=== PATIENT | female | born 1950 | race Caucasian/White ===

== ENCOUNTER → 2018-12-28 | Outpatient (CLI) | payer BC ==
--- NOTE | 2019-01-01 08:05 | MM ---
Reason for exam: screening (asymptomatic). Last mammogram was performed 2 years and 6 months ago. History: Patient is postmenopausal and history of other cancer. Family history of breast cancer in paternal grandmother at age 70. Took hormonal contraceptives for 5 years beginning at age 30. Physical Findings: A clinical breast exam by your physician is recommended on an annual basis and results should be correlated with mammographic findings. MG 3D Screening Mammo W/Cad Bilateral CC and MLO view(s) were taken. Prior study comparison: July 06, 2016, bilateral MG 3d screening mammo w/cad. June 04, 2015, bilateral MG screening mammo w CAD. The breast tissue is heterogeneously dense. This may lower the sensitivity of mammography. No significant changes when compared with prior studies. ASSESSMENT: Benign, BI-RAD 2 RECOMMENDATION: Routine screening mammogram of both breasts in 1 year.
== END | disposition home or self-care (01) ==
LOC: RADMAMWWP 10:53
PROVIDERS: ATTEND Family Medicine
DX: Z12.31 Encounter for screening mammogram for malignant neoplasm of breast (principal)
CPT/HCPCS: 77063; 77067

== ENCOUNTER → 2019-01-01 | Outpatient (CLI) | payer BC ==
--- NOTE | 2019-01-01 17:23 | CT ---
EXAMINATION TYPE: CT thor lumbar spine wo con DATE OF EXAM: 01/01/2019 COMPARISON: None HISTORY: MIDDLE TO LOWER BACK PAIN CT DLP: 1007 mGycm Automated exposure control for dose reduction was used. TECHNIQUE: Axial images 3 mm thick sections. Reconstructed images in the coronal and sagittal plane. FINDINGS: L1: There is some mild superior endplate compression deformity. This has mild posterior wall displace ment estimated 0.4 cm. No cord contact is evident. No spinal canal stenosis is present. L3: There is a superior endplate compression deformity with minimal anterior thecal sac compression f rom posterior wall displacement at superior endplate. No spinal canal stenosis cord contact or neural foraminal stenosis is present. L4: There is superior endplate compression deformity. No posterior wa ll displacement is evident. No spinal canal stenosis or neural foraminal stenosis present. L5-S1 facet hypertrophy is present greater on the right. Degenerative disc changes are present through the thoracic spine. Some vacuum disc phenomenon is pres ent T3-4, T4-5, T7-8, T8-9. Minimal endplate changes are present T6. No posterior wall displacement i s evident. IMPRESSION: 1. 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 NO SPIN AL CANAL STENOSIS OR CORD CONTACT IS EVIDENT. 2. MILD DEGENERATIVE DISC CHANGES THROUGHOUT THE THORACIC AND LUMBAR SPINE.
== END | disposition home or self-care (01) ==
LOC: RADCTMAIN 12:24
PROVIDERS: ATTEND Internal Medicine
DX: M51.26 Other intervertebral disc displacement, lumbar region (principal); M47.816 Spondylosis without myelopathy or radiculopathy, lumbar region; M43.8X6 Other specified deforming dorsopathies, lumbar region; M47.814 Spondylosis without myelopathy or radiculopathy, thoracic region
CPT/HCPCS: 72128; 72131

== ENCOUNTER 2022-07-28 08:04 | Day surgery (SDC) | payer BC, MEDICARE ==
[~2022-07-28 08:04] MED LIST: LACTATED RINGERS 1,000 ML IV SCH; MOXIFLOXACIN HCL 0.5% DROPS 3 ML BTL OP PRN; TETRACAINE 0.5% OPHTH (PF) DROPS 4 ML BTL OP PRN; TIMOLOL 0.5% OPHTH DROPS 5 ML BTL OP PRN
[2022-07-28 08:41] VITALS: TEMP 98
[2022-07-28] MEDS: CYCLOPENTOLATE 1% OPHTH SOLN 2 ML BTL OP PRN ×3 (08:43→08:57)
[2022-07-28] MEDS: PHENYLEPHRINE 2.5% OPHTH DRP 2ML OP PRN ×3 (08:46→09:00)
[2022-07-28] MEDS ORDERED: LIDOCAINE 1% (10MG/ML) FOR IV START INTRADERMA ONE (08:49)
[2022-07-28] MEDS ORDERED: fentaNYL (PF) 50 MCG/ML 2 ML AMP ONE (09:36)
[2022-07-28] MEDS ORDERED: MIDAZOLAM 2 MG/2 ML VIAL ONE (09:36)
[2022-07-28] MEDS ORDERED: EPINEPHrine (PF) 0.3 ML in BALANCED SALT IRRIG SOLN COMB2 500 ML IRRIGATION ONE (09:50)
[2022-07-28] MEDS ORDERED: DUOVISC KIT (GREEN BOX) INTRAOCULA ONE (09:51)
[2022-07-28] MEDS ORDERED: BALANCED SALT IRRIG SOLN COMB2 15 ML IRRIG.SOLN IRRIGATION ONE (09:51)
[2022-07-28] MEDS ORDERED: LIDOCAINE 1% (PF) 10MG/ML VIAL MISCELLANE ONE (09:51)
--- NOTE | 2022-07-28 10:12 | P.OP ---
Date of Procedure: 07/28/22 Preoperative Diagnosis: NS & CS & PSC & reg astig Postoperative Diagnosis: same Procedure(s) Performed: PIOL, OD Implants: [id number] 17.50 x 2.00 Anesthesia: MAC Surgeon: Musa Palomino Pathology: none sent Condition: stable Disposition: same day Indications for Procedure: blurry vision Operative Findings: no complications
[2022-07-28 10:33] VITALS: BP 121/65; PULSE 58; RESP 15
--- NOTE | 2022-07-29 02:44 | OP ---
OPERATIVE REPORT PROCEDURES PERFORMED: Phacoemulsification of cataract and intraocular lens implant of the right eye. PREOPERATIVE DIAGNOSES: 1. Nuclear sclerosis. 2. Cortical sclerosis. 3. Posterior subcapsular cataract. 4. Regular astigmatism. POSTOPERATIVE DIAGNOSES: 1. Nuclear sclerosis. 2. Cortical sclerosis. 3. Posterior subcapsular cataract. 4. Regular astigmatism. ANESTHESIA: Topical. ESTIMATED BLOOD LOSS: None. SPECIMEN TAKEN: None. DESCRIPTION OF PROCEDURE: After obtaining the appropriate consent, the patient was brought to the operating room. There, she was asked to sit upright, and the axes of 0 and 180 degrees were identified and marked with a gentian florence marker on the patient's corneal limbus. She was then placed in the proper supine position under cardiac monitoring and prepped and draped in the usual sterile manner. Using previously acquired corneal topography information, the axis of 124 degrees was identified and marked with the [employer] axis marker at the 11 o'clock position. An MVR blade was used to create a paracentesis port. Through this opening, 1% Xylocaine MPF 50:50 mix with balanced salt solution was injected into the anterior chamber. This was followed by stabilization of the anterior chamber with Viscoat. At the 9 o'clock position, a 2.5-mm keratome was used to create a self- sealing corneal flap incision. Through this opening, a cystotome was introduced to begin a continuous tear capsulorrhexis, which was then completed using the Utrata forceps. Hydrodissection and hydrodelineation of the lens were accomplished with balanced salt solution. Phacoemulsification lens utilizing phaco chop was accomplished in 18.81 seconds at 10% power. Additional Xylocaine MPF was instilled into the anterior chamber. This was followed by removal of the remaining cortical material under irrigation and aspiration as well as careful polishing of the posterior capsule in the capsule vacuum mode. Provisc was then used to stabilize the capsular bag and a Bausch [employer] Lomb MX60ET 17.5 diopter by 2 diopter cylindrical toric lens was placed into the capsular bag without difficulty. The remaining viscoelastic was removed from in and around the intraocular lens as well as the anterior chamber. Using the irrigation/aspiration instrument as a final step, the intraocular lens was then rotated to its proper orientation at the 124-degree trin[place] previously placed on the patient's cornea. The lens was then tamponaded against the posterior capsule with the tip of the irrigation/aspiration instrument. The instrument was withdrawn carefully from the eye and the eye was brought to normal intraocular pressure through the paracentesis port with balanced salt solution. Care was taken to ensure that the wounds were watertight. One last confirmation of lens's proper orientation was confirmed using the Cion[employer] axis marker. The patient then received 2 drops of 0.5% percent timolol, followed by 2 drops of 0.5% moxifloxacin. She was then lightly patched and shielded in the usual manner. There were no complications from the procedure. She tolerated the procedure well and was returned to outpatient recovery in good condition. MMODL / IJN: [id number] /
== END 2022-07-28 10:50 | disposition home or self-care (01) ==
LOC: OR 08:04
PROVIDERS: ATTEND Ophthalmology
DX: H25.811 Combined forms of age-related cataract, right eye (principal); E03.9 Hypothyroidism, unspecified; H35.433 Paving stone degeneration of retina, bilateral; H25.13 Age-related nuclear cataract, bilateral; H52.4 Presbyopia; Z79.890 Hormone replacement therapy
CPT/HCPCS: 66984; C1780; J2250; J0171; J3010; J2001

== ENCOUNTER 2022-08-25 06:13 | Day surgery (SDC) | payer MEDICARE ==
[2022-08-23 15:22] VITALS: BMI 23.4
[~2022-08-25 06:13] MED LIST changes: -MOXIFLOXACIN HCL 0.5% DROPS 3 ML BTL OP PRN; -TIMOLOL 0.5% OPHTH DROPS 5 ML BTL OP PRN
[2022-08-25] MEDS: CYCLOPENTOLATE 1% OPHTH SOLN 2 ML BTL OP PRN ×3 (06:50→07:08)
[2022-08-25] MEDS: PHENYLEPHRINE 2.5% OPHTH DRP 2ML OP PRN ×3 (06:53→07:11)
[2022-08-25 06:56] VITALS: RESP 16; TEMP 97.2
[2022-08-25] MEDS ORDERED: fentaNYL (PF) 50 MCG/ML 2 ML AMP ONE (07:23)
[2022-08-25] MEDS ORDERED: MIDAZOLAM 2 MG/2 ML VIAL ONE (07:23)
[2022-08-25] MEDS ORDERED: EPINEPHrine (PF) 1 MG/ML AMP MISCELLANE ONE (07:46)
[2022-08-25] MEDS ORDERED: BALANCED SALT IRRIG SOLN COMB2 15 ML IRRIG.SOLN IRRIGATION ONE (07:46)
[2022-08-25] MEDS ORDERED: LIDOCAINE 1% (PF) 10MG/ML VIAL MISCELLANE ONE (07:46)
[2022-08-25] MEDS ORDERED: HYALURONATE SODIUM INTRAOCULAR 1 EACH SYRINGE (12MG/ML) INTRAOCULA ONE (07:47)
[2022-08-25] MEDS ORDERED: EPINEPHrine (PF) 0.3 ML in BALANCED SALT IRRIG SOLN COMB2 500 ML IRRIGATION ONE ×4 (07:47)
[2022-08-25] MEDS: MOXIFLOXACIN HCL 0.5% DROPS 3 ML BTL OP PRN ×2 (07:56→08:02)
[2022-08-25] MEDS: TIMOLOL 0.5% OPHTH DROPS 5 ML BTL OP PRN ×2 (07:56→08:02)
--- NOTE | 2022-08-25 08:04 | P.OP ---
Date of Procedure: 08/25/22 Preoperative Diagnosis: NS & CS & PSC Postoperative Diagnosis: same Procedure(s) Performed: PIOL< OS Implants: MX60E 18.00 Anesthesia: MAC Surgeon: Musa Palomino Pathology: none sent Condition: stable Disposition: same day Indications for Procedure: blurry vision Operative Findings: no complications
[2022-08-25 08:31] VITALS: BP 136/69; PULSE 63
--- NOTE | 2022-08-25 14:51 | OP ---
OPERATIVE REPORT PROCEDURES PERFORMED: Phacoemulsification of cataract and intraocular lens implant of the left eye. PREOPERATIVE DIAGNOSIS: Nuclear sclerosis, cortical sclerosis, posterior subcapsular cataract. POSTOPERATIVE DIAGNOSIS: Nuclear sclerosis, cortical sclerosis, posterior subcapsular cataract. NARRATIVE: After obtaining the appropriate consent, the patient was brought to the operating room. There the patient was placed under cardiac monitoring, prepped and draped in the usual sterile manner. The patient was approached from the left temporal side. The mm Reyna ring inked in gentian florence was placed centrally on the cornea. At the 11 o'clock position, a 1.1 mm keratome was used to create a paracentesis port. Through this opening, 1% Xylocaine MPF 50/50 mix with balanced salt solution was injected into the anterior chamber. This was followed by stabilization of the anterior chamber with Amvisc viscoelastic. At the 9 o'clock position, a 2.75 mm erika keratome was used to create a self-scaling corneal flap incision in a Langerman fashion. Through this opening, a cystotome was introduced to begin a continuous tear capsulorrhexis which was completed using the Utrata forceps. Care was taken to ensure that the capsulorrhexis was at least the size of the [place] on the anterior cornea. Hydrodissection and hydrodelineation of the lens was accomplished with balanced salt solution. Phacoemulsification of the lens utilizing phaco chop was accomplished in 12.05 seconds at 12% power. Addition Xylocaine MPF was instilled into the anterior chamber. This was followed by removal of the remaining cortex under irrigation and aspiration along with careful polishing of the posterior capsule in a capsule vacuum mode. Additional Amvisc viscoelastic was then used to stabilize the capsular bag, and the Bausch [employer] Lomb MX60E 18.0 diopters Crystalens intraocular lens was injected into the capsular bag without difficulty. The lens was rotated 270 degrees so that the haptics resided at the 6 and 12 o'clock positions, and all remaining viscoelastic was then removed from within the capsular bag and around the anterior chamber. The eye was brought to normal intraocular pressure through the paracentesis port along with slight hydration of the incision sites. Watertight integrity was confirmed using a fluorescein strip. The patient then received 2 drops of 0.5% timolol followed by 2 drops of Vigamox and 2 drops of 1% atropine. The patient was then lightly patched and shielded in the usual manner. There was no complications from the procedure. The patient tolerated the procedure well and was returned to outpatient recovery in good condition. RAMYA / DONN: [id number] /
== END 2022-08-25 08:42 | disposition home or self-care (01) ==
LOC: OR 06:13
PROVIDERS: ATTEND Ophthalmology
DX: H25.812 Combined forms of age-related cataract, left eye (principal); H52.13 Myopia, bilateral; H52.4 Presbyopia; Z96.1 Presence of intraocular lens; E07.9 Disorder of thyroid, unspecified; Z79.890 Hormone replacement therapy
CPT/HCPCS: 66984; C1780; J2250; J0171; J3010; J2001

== ENCOUNTER → 2023-04-13 | Outpatient (CLI) | payer MEDICARE ==
--- NOTE | 2023-04-14 09:59 | MM ---
Reason for Exam: Screening (asymptomatic). Last mammogram was performed 4 year(s) and 3 month(s) ago. Patient History: Menarche at age 17. First Full-Term at age 29. Postmenopausal. Patient has history of breast feeding. Hormonal Contraceptives for 5 years from age 30 until age 35. Paternal grandmother had breast cancer, age 70. Risk Values: Siria 5 year model risk: 1.8%. NCI Lifetime model risk: 4.9%. Prior Study Comparison: 06/04/2015 Bilateral Screening Mammogram, [facility]. 07/06/2016 Bilateral Screening Mammogram, [facility]. 12/28/2018 Bilateral Screening Mammogram, [facility]. Tissue Density: The breast tissue is heterogeneously dense. This may lower the sensitivity of mammography. Findings: Analyzed By CAD. There is no suspicious group of microcalcifications or new suspicious mass in either breast. Overall Assessment: Negative, BI-RAD 1 Management: Screening Mammogram of both breasts in 1 year. . Patient should continue monthly self-breast exams. A clinical breast exam by your physician is recommended on an annual basis. This exam should not preclude additional follow-up of suspicious palpable abnormalities. Note on Siria scores and lifetime risk: 1. A Siira score greater than 3% is considered moderate risk. If this is the case, consider specialist referral to assess eligibility for a risk reducing agent. 2. If overall lifetime risk for the development of breast cancer is 20% or higher, the patient may qualify for future screening with alternating mammogram and breast MRI. Electronically signed and approved by: Vianey Ramsay M.D. Radiologist
== END | disposition home or self-care (01) ==
LOC: RADMAMWWP 08:42
PROVIDERS: ATTEND Family Medicine
DX: Z12.31 Encounter for screening mammogram for malignant neoplasm of breast (principal); Z78.0 Asymptomatic menopausal state; Z80.3 Family history of malignant neoplasm of breast
CPT/HCPCS: 77063; 77067